=== PATIENT | male | born 1980 | race Caucasian/White ===

== ENCOUNTER 2016-05-25 08:11 | Day surgery (SDC) | payer BC ==
[2016-05-23 16:08] LABS: Basophils # (auto) 0.1 uL; Basophils % (auto) 1.2 % (0.0-2.0); Eosinophils # (auto) 0.2 uL; Eosinophils % (auto) 4.2 % (0.0-7.0); Hematocrit 47.1 % (41.0-53.0); Hemoglobin 15.3 g/dL (13.5-17.5); Lymphocytes # (auto) 2.1 uL; Lymphocytes % (auto) 38.2 % (10.0-50.0); Mean Corpuscular Hemoglobin 29.6 pg (28.0-32.0); Mean Corpuscular Hgb Conc. 32.6 g/dL (32.0-36.0); Mean Corpuscular Volume 91.1 fL (80.0-100.0); Mean Platelet Volume 8.9 fL (7.4-10.4); Monocytes # (auto) 0.4 uL; Monocytes % (auto) 8.2 % (0.0-12.0); Neutrophils # (auto) 2.6 uL; Neutrophils % (auto) 48.2 % (37.0-80.0); Platelet Count (auto) 275 10^3/uL (140-450); Red Cell Distribution Width 12.8 % (11.6-16.0); White Blood Cell 5.4 10^3/uL (4.4-10.8)
[2016-05-23 16:14] LABS: Urine Bilirubin Negative (Negative); Urine Blood Negative /uL (Negative); Urine Color Colorless (Yellow); Urine Glucose Normal (Normal); Urine Ketone Negative (Negative); Urine Nitrite Negative (Negative); Urine RBC <1 /hpf (0 - 3); Urine Urobilinogen Normal (Negative)
[2016-05-23 16:22] LABS: BUN/Creatinine Ratio 12.5; Calcium 9.6 mg/dL (8.5-10.1); Potassium 4.2 mmol/L (3.5-5.1)
[2016-05-23 16:28] LABS: INR 0.98 (0.9-1.15); Partial Thromboplastin Time 28.2 sec (22.64-33.71); Prothrombin Time 10.1 sec (9.37-12.3)
[~2016-05-25] VITALS: Ht 175.3 cm; Wt 74.8 kg
[2016-05-25] MEDS ORDERED: ceFAZolin 1GM/50ML D5W 50 ML IV ONE (10:03)
[2016-05-25] MEDS ORDERED: fentaNYL CITRATE 100 MCG/2 ML VL ONE (10:13)
[2016-05-25] MEDS ORDERED: MIDAZOLAM HCL 1MG/1ML-2 ML VIAL ONE (10:13)
[2016-05-25] MEDS ORDERED: PROPOFOL 10 MG/ML 20 ML IV ONE (10:16)
[2016-05-25] MEDS ORDERED: LIDOCAINE W/ EPINEPHRINE 1 % INJ 30ML ONE (10:35)
[2016-05-25] MEDS ORDERED: BUPIVACAINE W/ EPINEPH 0.25% INJ 50ML MDV ONE ×2 (10:35)
[2016-05-25] MEDS ORDERED: LIDOCAINE W/ EPINEPHRINE 1 % INJ 30ML IJ ONE (10:36)
[2016-05-25] MEDS ORDERED: NEOMYCIN-BACITRACIN-POLYM 15GM TOP OINT TOP ONE (10:47)
[2016-05-25] MEDS ORDERED: HYDROmorphone HCL 2 MG/ML VL IV PRN (11:15)
[2016-05-25] MEDS ORDERED: ePHEDrine SULFATE 50 MG/ML AMP IV PRN (11:15)
[2016-05-25] MEDS ORDERED: ONDANSETRON HCL 4 MG/2 ML VIAL IV ONE (11:15)
[2016-05-25] MEDS ORDERED: hydrALAZINE HCL 20 MG/ML VL IV PRN (11:15)
[2016-05-25 12:12] VITALS: BP 127/82
== END 2016-05-25 12:12 | disposition home or self-care (01) ==
LOC: SUR 08:11
PROVIDERS: ATTEND Urology
DX: N46.9 Male infertility, unspecified (principal)
CPT/HCPCS: 36415; 55250; 80048; 81001; 85025; 85610; 85730; 87086; J0690; J2001; J2250; J2704; J3010; J7030